=== PATIENT | female | born 1960 | race Caucasian/White ===

== ENCOUNTER → 2019-09-04 | Outpatient (CLI) | payer OTHER | LOC: CAT 13:52 | DX: Z13.6 Encounter for screening for cardiovascular disorders (principal); E78.00 Pure hypercholesterolemia, unspecified; I25.10 Atherosclerotic heart disease of native coronary artery without angina pectoris ==

== ENCOUNTER → 2019-10-22 | Outpatient (CLI) | payer OTHER ==
--- NOTE | 2019-10-22 13:52 | 2DMMODE ---
[facility] [employer] [place] [address] 2 D/M-MODE ECHOCARDIOGRAM Name: CAMRONGRANTRachael DE LA FUENTE Room #: REG [facility]#: [id number] Admission: 10/22/19 Attend Phys: Quincy Pires, Discharge: Date of : 60 Report #: [id number] THIS REPORT FOR: //name// APPROVED REPORT Study performed: 10/22/2019 11:10:41 EXAM: Comprehensive 2D, Doppler, and color-flow Echocardiogram Patient Location: Echo lab Status: routine BSA: 1.44 HR: 84 bpm Rhythm: NSR Other Information Study Quality: Adequate Indications Chest pressure, SOB 2D Dimensions RVDd: 26.28 mm IVSd: 5.25 (7-11mm) LVOT Diam: 17.32 (18-24mm) LVDd: 27.43 mm PWd: 6.72 (7-11mm) Ascending Ao: 30.23 (22-36mm) LVDs: 17.54 (25-40mm) Aortic Root: 28.12 mm IVC: 14.00 mm Volumes Left Atrial Volume (Systole) Single Plane 4CH: 14.40 mL Single Plane 2CH: 15.74 mL LA ESV Index: 12.00 mL/m2 Aortic Valve AoV Peak Orlando.: 1.06 m/s AO Peak Gr.: 4.48 mmHg LVOT Max P.51 mmHg LVOT Max V: 0.94 m/s NOELLE Vmax: 2.08 cm2 Mitral Valve E/A Ratio: 1.4 MV Decel. Time: 205.91 ms MV E Max Orlando.: 1.18 m/s [facility] [address] [address] 2 D/M-MODE ECHOCARDIOGRAM Name: GRANT LYON Room #: REG [facility]#: [id number] Admission: 10/22/19 Attend Phys: Quincy Pires, Discharge: Date of : 60 Report #: [id number] MV A Orlando.: 0.84 m/s MV PHT: 59.71 ms IVRT: 86.51 ms Pulmonary Valve PV Peak Orlando.: 0.82 m/s PV Peak Gr.: 2.67 mmHg Pulmonary Vein P Vein S: 0.77 m/s P Vein A: 0.43 m/s P Vein D: 0.54 m/s P Vein A Dur.: 100.3 msec P Vein S/D Ratio: 1.43 Tricuspid Valve TR Peak Orlando.: 2.41 m/s RAP Estimate: 5.00 mmHg TR Peak Gr.: 23.25 mmHg PA Pressure: 28.00 mmHg Left Ventricle The left ventricle is normal size. There is normal left ventricular wall thickness. The left ventricular systolic function is normal. The left ventricular ejection fraction is within the normal range. LVEF is 60-65%. The left ventricular diastolic function is normal. Right Ventricle The right ventricle is normal size. The right ventricular systolic function is normal. Atria The left atrium size is normal. The right atrium size is normal. Aortic Valve The aortic valve is normal in structure. No aortic regurgitation is present. There is no aortic valvular stenosis. Mitral Valve The mitral valve is normal in structure. There is no mitral valve regurgitation noted. No evidence of mitral valve stenosis. Tricuspid Valve The tricuspid valve is normal in structure. Trace to mild tricuspid regurgitation. PAP is estimated at 28 mmHg. Pulmonic Valve Pulmonic valve is not well visualized. There is no pulmonic valvular regurgitation. [facility] [address] [place] [address] 2 D/M-MODE ECHOCARDIOGRAM Name: GRANT LYON [facility] Room #: REG [facility] [id number] Admission: 10/22/19 Attend Phys: Quincy Pires, Discharge: Date of : 60 Report #: [id number] Great Vessels The aortic root is normal in size. IVC is normal in size and collapses >50% with inspiration. Pericardium There is no pericardial effusion. <Conclusion> LVEF is 60-65%. <ELECTRONICALLY SIGNED> By: Jax Palma MD, [facility] 10/22/19 1351 1351 1351 Jax Palma MD, FACC /INF
== END ==
LOC: CV 10:26
DX: I36.1 Nonrheumatic tricuspid (valve) insufficiency (principal); E78.00 Pure hypercholesterolemia, unspecified; I45.10 Unspecified right bundle-branch block

== ENCOUNTER → 2019-11-20 | Outpatient (CLI) | payer OTHER ==
--- NOTE | 2019-11-21 10:13 | TST ---
[facility] [address] [employer] [place] [address] TREADMILL STRESS TEST Name: GRANT LYON Room #: REG [facility]ctorH[facility]ctor#: [id number] Admission: 11/20/19 Attend Phys: Quincy Pires, Discharge: Date of : 60 Report #: [id number] THIS REPORT FOR: //name// APPROVED REPORT Patient Location: Out-Patient Room #: Stress Nurse: Beth Yin RN The patient exercised according to the JAG protocol for 9 mins 29 seconds; achieving a work level of 10.8 METS. The resting heart rate of 108 bpm alicia to a maximum heart rate of 184 bpm. This value represent 113% of the maximal, age-predicted heart rate. The resting blood pressure of 110/60 mmHg, alicia to a maximum blood pressure of 144/74 mmHg. The exercise test was stopped due to Maximal effort The patient denied chest pain with exercise. There was a rare pvc noted at baseline at during exercise. Resting ECG showed 0.[address] depression. With exercise, there were no additional ST changes noted. Conclusion 1. clinical response: nonischemic 2. ECG response: nondiagnostic secondary to baseline ECG changes. 3. indeterminate exercise stress stress for myocardial ischemia becuase of baseline changes noted. 4. if clinical indicated, consider stress testing with myocardial perfusion imaging to improve the specificity of stress testing to rule out ischemia <ELECTRONICALLY SIGNED> By: Jax Palma MD, FACC 11/21/19 1012 1012 1012 Jax Palma MD, [facility] /INF
== END ==
LOC: CV 09:43
DX: R07.89 Other chest pain (principal); R06.02 Shortness of breath